=== PATIENT | male | born 1940 | race African-American/Black ===

== ENCOUNTER 2017-09-25 22:04 | Observation (INO) | payer OTHER ==
[2017-09-25 22:45] LABS: ADD MAN DIFF? NO
[2017-09-25] MEDS: LIDOCAINE/MYLANTA 40 ML BTL PO (22:56)
[2017-09-25] MEDS: FAMOTIDINE 20 MG INJ IV (22:56)
[2017-09-25] MEDS: SOD CHLORIDE 0.9% 500 ML IV (22:56)
[2017-09-25] MEDS: ONDANSETRON 4 MG INJ IV (22:57)
[2017-09-25] MEDS: morphine 4 MG/ML VIAL IV (22:57)
[2017-09-25 23:01] LABS: WHITE BLOOD COUNT 9.1 10^3/ul (4.8-10.8)
[2017-09-25 23:01] LABS: BASOPHILS % 0.3 % (0.0-2.0); HEMATOCRIT 34.3 % (42.0-52.0); HEMOGLOBIN 11.7 g/dl (14.0-18.0); IMMATURE GRANS #M 0.05 10^3/ul; IMMATURE GRANS % (M) 0.5 %; LYMPHOCYTES % 22.4 % (15.0-51.0); MEAN CORPUSCULAR HEMOGLOBIN 30.4 pg (29.0-33.0); MEAN CORPUSCULAR HGB CONC 34.1 g/dl (32.0-37.0); MEAN CORPUSCULAR VOLUME 89.1 fl (82.0-101.0); MONOCYTE # 0.7 10^3/ul (0.3-0.9); MONOCYTES % 7.8 % (0.0-11.0); NEUTROPHIL # 6.3 10^3/ul (1.6-7.5); PLATELET COUNT 131 10^3/UL (140-415); RED BLOOD COUNT 3.85 10^6/ul (4.70-6.10)
[2017-09-25 23:09] LABS: ALANINE AMINOTRANSFERASE 11 IU/L (13-69); ALBUMIN 3.3 g/dl (3.3-4.9); ALKALINE PHOSPHATASE 65 IU/L (42-121); ANION GAP 15 (8-16); ASPARTATE AMINO TRANSFERASE 22 IU/L (15-46); BILIRUBIN,INDIRECT 0.6 mg/dl (0-1.1); BILIRUBIN,TOTAL 0.6 mg/dl (0.2-1.3); BLOOD UREA NITROGEN 5 mg/dl (7-20); CALCIUM 8.1 mg/dl (8.4-10.2); CARBON DIOXIDE 20 mmol/L (21-31); CHLORIDE 89 mmol/L (97-110); CREATININE 0.76 mg/dl (0.61-1.24); GLUCOSE 81 mg/dl (70-220); LIPASE 63 U/L (23-300); POTASSIUM 3.2 mmol/L (3.5-5.1); SODIUM 121 mmol/L (135-144); TOTAL PROTEIN 6.3 g/dl (6.1-8.1)
[2017-09-25 23:55] LABS: ADD UMIC NO; UR ASCORBIC ACID NEGATIVE (NEGATIVE); UR BILIRUBIN (Dip) NEGATIVE (NEGATIVE); UR BLOOD (Dip) NEGATIVE (NEGATIVE); UR CLARITY CLEAR (CLEAR); UR COLOR STRAW (YELLOW); UR GLUCOSE (Dip) NEGATIVE (NEGATIVE); UR KETONES (Dip) NEGATIVE (NEGATIVE); UR LEUKOCYTE ESTERASE (Dip) NEGATIVE Leu/ul (NEGATIVE); UR NITRITE (Dip) NEGATIVE (NEGATIVE); UR SPECIFIC GRAVITY (Dip) 1.001 (1.003-1.030); UR TOTAL PROTEIN (Dip) NEGATIVE (NEGATIVE); UR UROBILINOGEN (Dip) NEGATIVE (NEGATIVE)
[2017-09-26] MEDS: POTASSIUM CHLORIDE (SR) 20 MEQ TAB PO (02:41)
[2017-09-26] MEDS: ONDANSETRON 4 MG INJ IV ×3 (03:48→20:41)
[2017-09-26] MEDS: PANTOPRAZOLE (EC) 40 MG TAB PO ×3 (06:46→20:39)
[2017-09-26 07:42] LABS: MAGNESIUM 0.6 mg/dl (1.7-2.5)
[2017-09-26] MEDS: ALLOPURINOL 100 MG TAB PO (08:25)
[2017-09-26] MEDS: MAGNESIUM OXIDE 400 MG TAB PO ×2 (08:25→20:38)
[2017-09-26] MEDS: MAGNESIUM SULFATE 4 GM/100 ML 100 ML IVPB (10:20)
[2017-09-26] MEDS: POTASSIUM CHLORIDE 40 MEQ in SOD CHLORIDE 0.9% 1,000 ML IV ×2 (12:21→20:30)
[2017-09-26] MEDS: ACETAMINOPHEN 325 MG TAB PO (12:44)
[2017-09-26 13:39] LABS: SODIUM 127 mmol/L (135-144)
[2017-09-26 18:46] LABS: ANION GAP 13 (8-16); BLOOD UREA NITROGEN 4 mg/dl (7-20); CALCIUM 8.4 mg/dl (8.4-10.2); CARBON DIOXIDE 23 mmol/L (21-31); CHLORIDE 98 mmol/L (97-110); CREATININE 0.78 mg/dl (0.61-1.24); GLUCOSE 70 mg/dl (70-220); MAGNESIUM 1.9 mg/dl (1.7-2.5); PHOSPHORUS 3.2 mg/dl (2.5-4.9); POTASSIUM 3.9 mmol/L (3.5-5.1); SODIUM 130 mmol/L (135-144)
[2017-09-26] MEDS: ALPRAZOLAM 0.5 MG TAB PO (20:43)
[2017-09-27] MEDS: ONDANSETRON 4 MG INJ IV (00:43)
[2017-09-27] MEDS: POTASSIUM CHLORIDE 40 MEQ in SOD CHLORIDE 0.9% 1,000 ML IV (03:08)
[2017-09-27] MEDS: morphine 4 MG/ML VIAL IV (04:22)
[2017-09-27 06:46] LABS: ADD MAN DIFF? NO
[2017-09-27 06:54] LABS: BASOPHILS % 0.6 % (0.0-2.0); HEMOGLOBIN 10.6 g/dl (14.0-18.0); IMMATURE GRANS #M 0.01 10^3/ul; IMMATURE GRANS % (M) 0.2 %; LYMPHOCYTES # 1.2 10^3/ul (0.8-2.9); LYMPHOCYTES % 23.4 % (15.0-51.0); MEAN CORPUSCULAR HEMOGLOBIN 29.7 pg (29.0-33.0); MEAN CORPUSCULAR HGB CONC 33.1 g/dl (32.0-37.0); MEAN CORPUSCULAR VOLUME 89.6 fl (82.0-101.0); MEAN PLATELET VOLUME 10.5 fl (7.4-10.4); MONOCYTE # 0.6 10^3/ul (0.3-0.9); MONOCYTES % 10.7 % (0.0-11.0); NEUTROPHIL # 3.4 10^3/ul (1.6-7.5); NEUTROPHILS % 65.1 % (39.0-77.0); PLATELET COUNT 132 10^3/UL (140-415); POSITIVE DIFF @See below; RED BLOOD COUNT 3.57 10^6/ul (4.70-6.10); RED CELL DISTRIBUTION WIDTH 14.1 % (11.5-14.5)
[2017-09-27 06:54] LABS: WHITE BLOOD COUNT 5.3 10^3/ul (4.8-10.8)
[2017-09-27 07:28] LABS: ANION GAP 10 (8-16); BLOOD UREA NITROGEN 3 mg/dl (7-20); CALCIUM 8.4 mg/dl (8.4-10.2); CARBON DIOXIDE 25 mmol/L (21-31); CHLORIDE 106 mmol/L (97-110); CREATININE 0.83 mg/dl (0.61-1.24); GLUCOSE 88 mg/dl (70-220); POTASSIUM 3.7 mmol/L (3.5-5.1); SODIUM 137 mmol/L (135-144)
[2017-09-27 07:31] LABS: PHOSPHORUS 3.1 mg/dl (2.5-4.9)
[2017-09-27 07:31] LABS: MAGNESIUM 1.7 mg/dl (1.7-2.5)
[2017-09-27] MEDS: MAGNESIUM OXIDE 400 MG TAB PO (08:21)
[2017-09-27] MEDS: ALLOPURINOL 100 MG TAB PO (08:21)
[2017-09-27] MEDS: PANTOPRAZOLE (EC) 40 MG TAB PO (08:21)
[2017-09-27] MEDS: MAGNESIUM SULFATE 2 GM/50 ML 50 ML IVPB (10:36)
[2017-09-27] MEDS: POTASSIUM CHLORIDE (SR) 20 MEQ TAB PO (10:37)
== END 2017-09-27 15:43 | disposition home or self-care (01) ==
LOC: E/R 22:04 → TEL 09-26 01:05
DX: E87.1 Hypo-osmolality and hyponatremia (principal); K20.9 Esophagitis, unspecified; K40.90 Unilateral inguinal hernia, without obstruction or gangrene, not specified as recurrent; J45.909 Unspecified asthma, uncomplicated; I10 Essential (primary) hypertension; I48.91 Unspecified atrial fibrillation; Z79.82 Long term (current) use of aspirin; Z88.6 Allergy status to analgesic agent; Z88.8 Allergy status to other drugs, medicaments and biological substances
CPT/HCPCS: 36415; 80048; 80053; 81003; 82533; 83690; 83735; 84100; 84295; 85025; 92526; 92610; 96374; 96375; 99285-25; G0378

== ENCOUNTER 2017-12-12 09:18 | Inpatient (IN) | payer OTHER ==
[2017-12-12 09:57] LABS: ADD MAN DIFF? NO
[2017-12-12 10:00] LABS: BASOPHILS % 0.2 % (0.0-2.0); HEMOGLOBIN 12.1 g/dl (14.0-18.0); LYMPHOCYTES # 1.4 10^3/ul (0.8-2.9); LYMPHOCYTES % 13.1 % (15.0-51.0); MEAN CORPUSCULAR HEMOGLOBIN 29.6 pg (29.0-33.0); MEAN CORPUSCULAR HGB CONC 34.6 g/dl (32.0-37.0); MEAN CORPUSCULAR VOLUME 85.6 fl (82.0-101.0); MEAN PLATELET VOLUME 10.1 fl (7.4-10.4); MONOCYTE # 0.5 10^3/ul (0.3-0.9); MONOCYTES % 4.8 % (0.0-11.0); NEUTROPHIL # 8.9 10^3/ul (1.6-7.5); NEUTROPHILS % 81.4 % (39.0-77.0); PLATELET COUNT 159 10^3/UL (140-415); RED BLOOD COUNT 4.09 10^6/ul (4.70-6.10); RED CELL DISTRIBUTION WIDTH 14.3 % (11.5-14.5)
[2017-12-12 10:00] LABS: WHITE BLOOD COUNT 10.9 10^3/ul (4.8-10.8)
[2017-12-12 10:19] LABS: INR 1.02; PARTIAL THROMBOPLASTIN TIME 27.1 Sec (23.0-35.0); PROTIME 13.5 Sec (11.9-14.9); PT RATIO 1.1
[2017-12-12] MEDS: SOD CHLORIDE 0.9% 1,000 ML IV ×2 (10:30→18:49)
[2017-12-12] MEDS: ONDANSETRON 4 MG INJ IV (10:30)
[2017-12-12] MEDS: FAMOTIDINE 20 MG INJ IV (10:30)
[2017-12-12 10:32] LABS: ALANINE AMINOTRANSFERASE 16 IU/L (13-69); ALBUMIN 3.6 g/dl (3.3-4.9); ALBUMIN/GLOBULIN RATIO 1.12; ALKALINE PHOSPHATASE 55 IU/L (42-121); AMYLASE 124 U/L (11-123); ANION GAP 14 (5-13); ASPARTATE AMINO TRANSFERASE 25 IU/L (15-46); BILIRUBIN,INDIRECT 0.7 mg/dl (0-1.1); BILIRUBIN,TOTAL 0.7 mg/dl (0.2-1.3); BLOOD UREA NITROGEN 7 mg/dl (7-20); CALCIUM 8.3 mg/dl (8.4-10.2); CARBON DIOXIDE 20 mmol/L (21-31); CHLORIDE 80 mmol/L (97-110); CREATININE 0.71 mg/dl (0.61-1.24); GLUCOSE 82 mg/dl (70-220); LIPASE 80 U/L (23-300); POTASSIUM 3.7 mmol/L (3.5-5.1); TOTAL PROTEIN 6.8 g/dl (6.1-8.1)
[2017-12-12 10:41] LABS: SODIUM 114 mmol/L (135-144); TROPONIN-I 0.018 ng/ml (0.000-0.120)
[2017-12-12] MEDS ORDERED: ONDANSETRON 4 MG TAB PO (14:30)
[2017-12-12] MEDS ORDERED: ONDANSETRON 4 MG INJ IV (14:30)
[2017-12-12] MEDS ORDERED: NACL 0.9% 3 ML SYG IV (14:30)
[2017-12-12] MEDS ORDERED: ACETAMINOPHEN 325 MG TAB PO (14:30)
[2017-12-12] MEDS: PANTOPRAZOLE 40 MG INJ IV (14:47)
[2017-12-12] MEDS: hydrALAzine 20 MG INJ IV (14:48)
[2017-12-12] MEDS: METOCLOPRAMIDE 10 MG INJ IV ×2 (14:48→21:15)
[2017-12-12] MEDS: SODIUM CHLORIDE 1 GM TAB PO ×2 (15:22→21:15)
[2017-12-12] MEDS: LISINOPRIL 5 MG TAB PO (15:22)
[2017-12-12] MEDS: ARIPIPRAZOLE 2 MG TAB PO (15:22)
[2017-12-12 16:36] LABS: ANION GAP 12 (5-13); BLOOD UREA NITROGEN 6 mg/dl (7-20); CALCIUM 8.1 mg/dl (8.4-10.2); CARBON DIOXIDE 19 mmol/L (21-31); CHLORIDE 83 mmol/L (97-110); CREATININE 0.66 mg/dl (0.61-1.24); GLUCOSE 80 mg/dl (70-220); POTASSIUM 3.4 mmol/L (3.5-5.1)
[2017-12-12 16:46] LABS: SODIUM 114 mmol/L (135-144)
[2017-12-12 16:46] LABS: MAGNESIUM 0.5 mg/dl (1.7-2.5)
[2017-12-12] MEDS: ALBUTEROL HFA 8 GM INHALER INH ×3 (17:00→23:57)
[2017-12-12] MEDS: ALPRAZOLAM 0.5 MG TAB PO (19:29)
[2017-12-12] MEDS: POTASSIUM CHLORIDE 100 ML IVPB (20:42)
[2017-12-12] MEDS: MAGNESIUM SULFATE 4 GM/100 ML 100 ML IVPB (20:46)
[2017-12-12] MEDS: TAMSULOSIN (SR) 0.4 MG CAP PO (21:15)
[2017-12-12] MEDS: MAGNESIUM OXIDE 400 MG TAB PO (21:15)
[2017-12-13] MEDS: ALBUTEROL HFA 8 GM INHALER INH ×6 (02:30→21:23)
[2017-12-13] MEDS: ALPRAZOLAM 0.5 MG TAB PO ×2 (03:17→17:12)
[2017-12-13] MEDS: SOD CHLORIDE 0.9% 1,000 ML IV ×2 (04:30→14:04)
[2017-12-13 09:28] LABS: MAGNESIUM 1.4 mg/dl (1.7-2.5)
[2017-12-13 09:28] LABS: ANION GAP 10 (5-13); BLOOD UREA NITROGEN 6 mg/dl (7-20); CALCIUM 8.1 mg/dl (8.4-10.2); CARBON DIOXIDE 20 mmol/L (21-31); CHLORIDE 92 mmol/L (97-110); CREATININE 0.61 mg/dl (0.61-1.24); GLUCOSE 60 mg/dl (70-220); POTASSIUM 3.4 mmol/L (3.5-5.1); SODIUM 122 mmol/L (135-144)
[2017-12-13] MEDS: ARIPIPRAZOLE 2 MG TAB PO (09:46)
[2017-12-13] MEDS: PANTOPRAZOLE 40 MG INJ IV (09:46)
[2017-12-13] MEDS: MAGNESIUM OXIDE 400 MG TAB PO ×2 (09:47→21:23)
[2017-12-13] MEDS: FOLIC ACID 1 MG TAB PO (09:47)
[2017-12-13] MEDS: ALLOPURINOL 100 MG TAB PO (09:47)
[2017-12-13] MEDS: LISINOPRIL 5 MG TAB PO (09:47)
[2017-12-13] MEDS: VITAMIN B COMPLEX/VIT C CAP PO (09:47)
[2017-12-13] MEDS: METOCLOPRAMIDE 10 MG INJ IV ×3 (09:48→21:23)
[2017-12-13] MEDS: ENOXAPARIN 40 MG/0.4 ML SYG SC (10:02)
[2017-12-13] MEDS: SODIUM CHLORIDE 1 GM TAB PO ×2 (10:19→23:00)
[2017-12-13] MEDS: MAGNESIUM SULFATE 2 GM/50 ML 50 ML IVPB (10:35)
[2017-12-13] MEDS: TAMSULOSIN (SR) 0.4 MG CAP PO (21:23)
[2017-12-14] MEDS: SOD CHLORIDE 0.9% 1,000 ML IV ×2 (01:00→10:56)
[2017-12-14] MEDS: ALBUTEROL HFA 8 GM INHALER INH ×4 (01:37→12:38)
[2017-12-14 06:13] LABS: ADD MAN DIFF? NO
[2017-12-14 06:20] LABS: BASOPHILS % 0.1 % (0.0-2.0); HEMOGLOBIN 11.9 g/dl (14.0-18.0); LYMPHOCYTES # 0.8 10^3/ul (0.8-2.9); LYMPHOCYTES % 8.3 % (15.0-51.0); MEAN CORPUSCULAR HEMOGLOBIN 29.4 pg (29.0-33.0); MEAN PLATELET VOLUME 9.7 fl (7.4-10.4); MONOCYTE # 0.6 10^3/ul (0.3-0.9); MONOCYTES % 6.4 % (0.0-11.0); NEUTROPHIL # 7.8 10^3/ul (1.6-7.5); NEUTROPHILS % 84.8 % (39.0-77.0); PLATELET COUNT 133 10^3/UL (140-415); POSITIVE DIFF @See below; RED BLOOD COUNT 4.05 10^6/ul (4.70-6.10); RED CELL DISTRIBUTION WIDTH 14.5 % (11.5-14.5)
[2017-12-14 06:20] LABS: WHITE BLOOD COUNT 9.2 10^3/ul (4.8-10.8)
[2017-12-14 06:47] LABS: ANION GAP 10 (5-13); BLOOD UREA NITROGEN 4 mg/dl (7-20); CALCIUM 8.6 mg/dl (8.4-10.2); CARBON DIOXIDE 22 mmol/L (21-31); CHLORIDE 95 mmol/L (97-110); CREATININE 0.57 mg/dl (0.61-1.24); GLUCOSE 71 mg/dl (70-220); POTASSIUM 3.3 mmol/L (3.5-5.1); SODIUM 127 mmol/L (135-144)
[2017-12-14 06:49] LABS: MAGNESIUM 1.6 mg/dl (1.7-2.5)
[2017-12-14] MEDS: VITAMIN B COMPLEX/VIT C CAP PO (08:45)
[2017-12-14] MEDS: POTASSIUM CHLORIDE (SR) 20 MEQ TAB PO ×2 (08:45→10:56)
[2017-12-14] MEDS: MAGNESIUM OXIDE 400 MG TAB PO (08:46)
[2017-12-14] MEDS: LISINOPRIL 5 MG TAB PO (08:46)
[2017-12-14] MEDS: ARIPIPRAZOLE 2 MG TAB PO (08:46)
[2017-12-14] MEDS: PANTOPRAZOLE 40 MG INJ IV (08:46)
[2017-12-14] MEDS: FOLIC ACID 1 MG TAB PO (08:46)
[2017-12-14] MEDS: ALLOPURINOL 100 MG TAB PO (08:46)
[2017-12-14] MEDS: SODIUM CHLORIDE 1 GM TAB PO (08:46)
[2017-12-14] MEDS: METOCLOPRAMIDE 10 MG INJ IV ×2 (08:46→12:38)
[2017-12-14] MEDS: ENOXAPARIN 40 MG/0.4 ML SYG SC (08:47)
[2017-12-14] MEDS: MAGNESIUM SULFATE 3 GM in DEXTROSE 5% 100 ML IVPB (10:56)
== END 2017-12-14 18:25 | disposition home health service (06) | DRG 641 ==
LOC: E/R 09:18 → TEL 13:10
DX: E87.1 Hypo-osmolality and hyponatremia (principal); K29.70 Gastritis, unspecified, without bleeding; R13.10 Dysphagia, unspecified; I48.91 Unspecified atrial fibrillation; I10 Essential (primary) hypertension; F42.8 Other obsessive-compulsive disorder; E87.6 Hypokalemia; E83.42 Hypomagnesemia; R14.2 Eructation
CPT/HCPCS: 71045; 74176; 80048; 80053; 82150; 83690; 83735; 84484; 85025; 85610; 85730; 92610; 93005; 96374; 96375; 97161; 97166; 99285-25

== ENCOUNTER 2018-02-06 01:00 | Emergency (ER) | payer OTHER ==
[2018-02-06 02:29] LABS: ADD MAN DIFF? NO
[2018-02-06 02:31] LABS: WHITE BLOOD COUNT 7.7 10^3/ul (4.8-10.8)
[2018-02-06 02:31] LABS: BASOPHILS % 0.4 % (0.0-2.0); EOSINOPHILS # 0.1 10^3/ul (0.0-0.5); EOSINOPHILS % 0.6 % (0.0-7.0); HEMATOCRIT 37.1 % (42.0-52.0); LYMPHOCYTES # 1.9 10^3/ul (0.8-2.9); LYMPHOCYTES % 24.9 % (15.0-51.0); MEAN CORPUSCULAR HEMOGLOBIN 29.5 pg (29.0-33.0); MEAN CORPUSCULAR HGB CONC 32.3 g/dl (32.0-37.0); MEAN CORPUSCULAR VOLUME 91.2 fl (82.0-101.0); MEAN PLATELET VOLUME 9.4 fl (7.4-10.4); MONOCYTE # 0.7 10^3/ul (0.3-0.9); MONOCYTES % 9.1 % (0.0-11.0); NEUTROPHILS % 64.7 % (39.0-77.0); PLATELET COUNT 206 10^3/UL (140-415); RED BLOOD COUNT 4.07 10^6/ul (4.70-6.10); RED CELL DISTRIBUTION WIDTH 16.4 % (11.5-14.5)
[2018-02-06 02:58] LABS: ALANINE AMINOTRANSFERASE 10 IU/L (13-69); ALBUMIN 3.3 g/dl (3.3-4.9); ALKALINE PHOSPHATASE 67 IU/L (42-121); ANION GAP 8 (5-13); ASPARTATE AMINO TRANSFERASE 19 IU/L (15-46); BILIRUBIN,INDIRECT 0.2 mg/dl (0-1.1); BILIRUBIN,TOTAL 0.2 mg/dl (0.2-1.3); BLOOD UREA NITROGEN 10 mg/dl (7-20); CARBON DIOXIDE 32 mmol/L (21-31); CHLORIDE 99 mmol/L (97-110); CREATININE 0.95 mg/dl (0.61-1.24); GLUCOSE 77 mg/dl (70-220); LIPASE 67 U/L (23-300); POTASSIUM 5.2 mmol/L (3.5-5.1); SODIUM 139 mmol/L (135-144); TOTAL PROTEIN 6.3 g/dl (6.1-8.1)
[2018-02-06 03:09] LABS: TROPONIN-I < 0.012 ng/ml (0.000-0.120)
[2018-02-06] MEDS: ONDANSETRON 4 MG INJ IV (05:00)
== END 2018-02-06 06:05 | disposition home or self-care (01) ==
LOC: E/R 01:00
DX: R11.10 Vomiting, unspecified (principal); I10 Essential (primary) hypertension; F17.210 Nicotine dependence, cigarettes, uncomplicated
CPT/HCPCS: 36415; 71045; 80053; 83690; 84484; 85025; 93005; 96374; 99285-25

== ENCOUNTER 2018-03-10 03:17 | Emergency (ER) | payer OTHER ==
[2018-03-10] MEDS ORDERED: SOD CHLORIDE 0.9% 1,000 ML IV (03:41)
[2018-03-10 04:28] LABS: ADD MAN DIFF? NO
[2018-03-10 04:29] LABS: BASOPHILS % 0.3 % (0.0-2.0); EOSINOPHILS % 0.1 % (0.0-7.0); HEMATOCRIT 31.6 % (42.0-52.0); HEMOGLOBIN 10.5 g/dl (14.0-18.0); LYMPHOCYTES # 1.3 10^3/ul (0.8-2.9); LYMPHOCYTES % 18.5 % (15.0-51.0); MEAN CORPUSCULAR HEMOGLOBIN 29.5 pg (29.0-33.0); MEAN CORPUSCULAR HGB CONC 33.2 g/dl (32.0-37.0); MEAN CORPUSCULAR VOLUME 88.8 fl (82.0-101.0); MEAN PLATELET VOLUME 9.2 fl (7.4-10.4); MONOCYTE # 0.9 10^3/ul (0.3-0.9); MONOCYTES % 12.3 % (0.0-11.0); NEUTROPHIL # 4.8 10^3/ul (1.6-7.5); NEUTROPHILS % 68.5 % (39.0-77.0); PLATELET COUNT 177 10^3/UL (140-415); RED BLOOD COUNT 3.56 10^6/ul (4.70-6.10)
[2018-03-10] MEDS: FAMOTIDINE 20 MG INJ IV (04:30)
[2018-03-10] MEDS: ONDANSETRON 4 MG INJ IV (04:30)
[2018-03-10 04:51] LABS: ALANINE AMINOTRANSFERASE 15 IU/L (13-69); ALBUMIN 2.9 g/dl (3.3-4.9); ALBUMIN/GLOBULIN RATIO 1.03; ALKALINE PHOSPHATASE 63 IU/L (42-121); ANION GAP 8 (5-13); ASPARTATE AMINO TRANSFERASE 20 IU/L (15-46); BILIRUBIN,INDIRECT 0.1 mg/dl (0-1.1); BILIRUBIN,TOTAL 0.1 mg/dl (0.2-1.3); BLOOD UREA NITROGEN 5 mg/dl (7-20); CALCIUM 8.3 mg/dl (8.4-10.2); CARBON DIOXIDE 31 mmol/L (21-31); CHLORIDE 89 mmol/L (97-110); CREATININE 1.01 mg/dl (0.61-1.24); GLUCOSE 79 mg/dl (70-220); LIPASE 55 U/L (23-300); POTASSIUM 4.8 mmol/L (3.5-5.1); SODIUM 128 mmol/L (135-144); TOTAL PROTEIN 5.7 g/dl (6.1-8.1)
[2018-03-10 05:16] LABS: ADD UMIC NO; UR ASCORBIC ACID NEGATIVE (NEGATIVE); UR BILIRUBIN (Dip) NEGATIVE (NEGATIVE); UR BLOOD (Dip) NEGATIVE (NEGATIVE); UR CLARITY CLEAR (CLEAR); UR COLOR STRAW (YELLOW); UR GLUCOSE (Dip) NEGATIVE (NEGATIVE); UR KETONES (Dip) NEGATIVE (NEGATIVE); UR LEUKOCYTE ESTERASE (Dip) NEGATIVE Leu/ul (NEGATIVE); UR NITRITE (Dip) NEGATIVE (NEGATIVE); UR SPECIFIC GRAVITY (Dip) 1.004 (1.003-1.030); UR TOTAL PROTEIN (Dip) NEGATIVE (NEGATIVE); UR UROBILINOGEN (Dip) NEGATIVE (NEGATIVE)
== END 2018-03-10 08:15 | disposition home or self-care (01) ==
LOC: E/R 03:17
DX: R11.10 Vomiting, unspecified (principal); F45.8 Other somatoform disorders; E87.1 Hypo-osmolality and hyponatremia; I10 Essential (primary) hypertension; Z87.891 Personal history of nicotine dependence
CPT/HCPCS: 36415; 80053; 81003; 83690; 85025; 96374; 96375; 99284-25

== ENCOUNTER 2018-03-29 23:46 | Emergency (ER) | payer SELFPAY, OTHER | END 2018-03-30 00:19 | disposition left against medical advice (07) | LOC: E/R 23:46 | DX: Z53.21 Procedure and treatment not carried out due to patient leaving prior to being seen by health care provider (principal) ==

== ENCOUNTER 2018-04-16 16:21 | Inpatient (IN) | payer OTHER ==
[2018-04-16 17:03] LABS: HEMATOCRIT 35.9 % (42.0-52.0); MEAN CORPUSCULAR HEMOGLOBIN 29.3 pg (29.0-33.0); MEAN CORPUSCULAR HGB CONC 33.4 g/dl (32.0-37.0); MEAN CORPUSCULAR VOLUME 87.6 fl (82.0-101.0); PLATELET COUNT 174 10^3/UL (140-415); POSITIVE DIFF @See below; RED CELL DISTRIBUTION WIDTH 13.8 % (11.5-14.5)
[2018-04-16 17:03] LABS: WHITE BLOOD COUNT 12.3 10^3/ul (4.8-10.8)
[2018-04-16 17:11] LABS: ADD MAN DIFF? YES; MEAN PLATELET VOLUME 11.3 fl (7.4-10.4)
[2018-04-16] MEDS: ONDANSETRON 4 MG INJ IV (17:35)
[2018-04-16] MEDS: SOD CHLORIDE 0.9% 1,000 ML IV ×2 (17:35→22:15)
[2018-04-16 17:48] LABS: ALANINE AMINOTRANSFERASE 18 IU/L (13-69); ALBUMIN 3.2 g/dl (3.3-4.9); ALBUMIN/GLOBULIN RATIO 1.06; ALKALINE PHOSPHATASE 76 IU/L (42-121); ANION GAP 9 (5-13); ASPARTATE AMINO TRANSFERASE 24 IU/L (15-46); BILIRUBIN,INDIRECT 0.7 mg/dl (0-1.1); BILIRUBIN,TOTAL 0.7 mg/dl (0.2-1.3); BLOOD UREA NITROGEN 7 mg/dl (7-20); CALCIUM 8.5 mg/dl (8.4-10.2); CARBON DIOXIDE 27 mmol/L (21-31); CHLORIDE 81 mmol/L (97-110); CREATININE 0.73 mg/dl (0.61-1.24); GLUCOSE 78 mg/dl (70-220); LIPASE 38 U/L (23-300); POTASSIUM 5.1 mmol/L (3.5-5.1); TOTAL PROTEIN 6.2 g/dl (6.1-8.1)
[2018-04-16 18:00] LABS: TROPONIN-I 0.028 ng/ml (0.000-0.120)
[2018-04-16 18:01] LABS: SODIUM 117 mmol/L (135-144)
[2018-04-16 19:25] LABS: ANISOCYTOSIS 1+ (0-0); BAND NEUTROPHILS #M 0.3 10^3/ul (0.0-0.6); BAND NEUTROPHILS % (M) 3 % (0-4); BURR CELLS 1+ (0-0); GIANT THROMBO% (M) 3 % (0-0); LYMPHOCYTES #M 1.4 10^3/ul (0.8-2.9); LYMPHOCYTES % (M) 12 % (15-51); MICROCYTOSIS 1+ (0-0); MONOCYTE #M 0.6 10^3/ul (0.3-0.9); MONOCYTES % (M) 5 % (0-11); OVALOCYTES 2+ (0-0); PLATELET ESTIMATE NORMAL; POIKILOCYTOSIS 2+ (0-0); REACTIVE LYMPHOCYTES #M 0.1 10^3/ul (0.0-0.0); REACTIVE LYMPHOCYTES% (M) 1 % (0-0); SEG NEUT #M 9.8 10^3/ul (1.6-7.5); SEGMENTED NEUTROPHILS (M) % 79 % (39-77); SMUDGE%M 19 % (0-0)
[2018-04-16] MEDS: LORAZEPAM 2 MG INJ IV (19:47)
[2018-04-16 21:05] LABS: ANION GAP 6 (5-13); BLOOD UREA NITROGEN 7 mg/dl (7-20); CALCIUM 8.3 mg/dl (8.4-10.2); CARBON DIOXIDE 25 mmol/L (21-31); CHLORIDE 86 mmol/L (97-110); CREATININE 0.66 mg/dl (0.61-1.24); GLUCOSE 72 mg/dl (70-220); POTASSIUM 4.6 mmol/L (3.5-5.1)
[2018-04-16 21:12] LABS: ADD UMIC NO; UR ASCORBIC ACID NEGATIVE (NEGATIVE); UR BILIRUBIN (Dip) NEGATIVE (NEGATIVE); UR BLOOD (Dip) NEGATIVE (NEGATIVE); UR CLARITY CLEAR (CLEAR); UR COLOR STRAW (YELLOW); UR GLUCOSE (Dip) NEGATIVE (NEGATIVE); UR KETONES (Dip) NEGATIVE (NEGATIVE); UR LEUKOCYTE ESTERASE (Dip) NEGATIVE Leu/ul (NEGATIVE); UR NITRITE (Dip) NEGATIVE (NEGATIVE); UR SPECIFIC GRAVITY (Dip) 1.003 (1.003-1.030); UR TOTAL PROTEIN (Dip) NEGATIVE (NEGATIVE); UR UROBILINOGEN (Dip) NEGATIVE (NEGATIVE)
[2018-04-16 21:16] LABS: SODIUM 117 mmol/L (135-144)
[2018-04-16 21:35] LABS: OSMOLALITY 238 mOsm/kg (280-295)
[2018-04-16 21:36] LABS: OSMOLALITY,URINE 166 mOsm/kg (250-1200)
[2018-04-16 22:00] LABS: SODIUM,URINE RANDOM 35 mmol/L (30-90)
[2018-04-16] MEDS ORDERED: SOD CHLORIDE 0.9% 1,000 ML IV (22:00)
[2018-04-16] MEDS ORDERED: ACETAMINOPHEN 325 MG TAB PO (22:30)
[2018-04-16] MEDS ORDERED: ONDANSETRON 4 MG INJ IV (22:30)
[2018-04-17] MEDS: ZOLPIDEM 5 MG TAB PO (00:35)
[2018-04-17] MEDS: LORAZEPAM 2 MG INJ IV ×2 (01:08→06:07)
[2018-04-17] MEDS ORDERED: PENDING SANTYL ORDER FOR WOUND CARE XX (04:00)
[2018-04-17] MEDS: SOD CHLORIDE 0.9% 1,000 ML IV ×2 (05:38→15:05)
[2018-04-17 07:01] LABS: ADD MAN DIFF? NO
[2018-04-17 07:04] LABS: BASOPHILS % 0.2 % (0.0-2.0); EOSINOPHILS % 0.3 % (0.0-7.0); HEMATOCRIT 32.8 % (42.0-52.0); HEMOGLOBIN 11.2 g/dl (14.0-18.0); LYMPHOCYTES # 1.5 10^3/ul (0.8-2.9); LYMPHOCYTES % 16.8 % (15.0-51.0); MEAN CORPUSCULAR HEMOGLOBIN 28.8 pg (29.0-33.0); MEAN CORPUSCULAR HGB CONC 34.1 g/dl (32.0-37.0); MEAN CORPUSCULAR VOLUME 84.3 fl (82.0-101.0); MEAN PLATELET VOLUME 10.4 fl (7.4-10.4); MONOCYTE # 0.5 10^3/ul (0.3-0.9); MONOCYTES % 5.2 % (0.0-11.0); NEUTROPHIL # 6.6 10^3/ul (1.6-7.5); NEUTROPHILS % 77.2 % (39.0-77.0); PLATELET COUNT 154 10^3/UL (140-415); RED BLOOD COUNT 3.89 10^6/ul (4.70-6.10); RED CELL DISTRIBUTION WIDTH 13.8 % (11.5-14.5)
[2018-04-17 07:04] LABS: WHITE BLOOD COUNT 8.6 10^3/ul (4.8-10.8)
[2018-04-17 07:28] LABS: BLOOD UREA NITROGEN 7 mg/dl (7-20); CALCIUM 8.6 mg/dl (8.4-10.2); CARBON DIOXIDE 24 mmol/L (21-31); CREATININE 0.67 mg/dl (0.61-1.24); GLUCOSE 72 mg/dl (70-220); POTASSIUM 4.1 mmol/L (3.5-5.1); SODIUM 123 mmol/L (135-144)
[2018-04-17 07:40] LABS: ANION GAP 8 (5-13); CHLORIDE 91 mmol/L (97-110)
[2018-04-17] MEDS ORDERED: SODIUM CHLORIDE 1 GM TAB PO (10:00)
[2018-04-17] MEDS ORDERED: ALPRAZOLAM 0.5 MG TAB PO (10:00)
[2018-04-17] MEDS: SODIUM CHLORIDE 1 GM TAB PO ×3 (10:41→20:09)
[2018-04-17] MEDS: ALLOPURINOL 100 MG TAB PO (10:41)
[2018-04-17] MEDS: LISINOPRIL 5 MG TAB PO (10:42)
[2018-04-17] MEDS: PANTOPRAZOLE (EC) 40 MG TAB PO ×2 (10:42→17:17)
[2018-04-17] MEDS: ARIPIPRAZOLE 2 MG TAB PO (10:42)
[2018-04-17] MEDS: HYDROCODONE/APAP (5/325) TAB PO (16:45)
[2018-04-17] MEDS ORDERED: morphine 4 MG/ML VIAL IV ×2 (19:00)
[2018-04-17] MEDS: KETOROLAC 30 MG INJ IV (19:30)
[2018-04-17] MEDS: SERTRALINE 50 MG TAB PO (20:09)
[2018-04-17] MEDS: TAMSULOSIN (SR) 0.4 MG CAP PO (20:09)
[2018-04-17] MEDS: DONEPEZIL 5 MG TAB PO (20:09)
[2018-04-17] MEDS: morphine 2 MG INJ IV (22:27)
[2018-04-18] MEDS: LORAZEPAM 2 MG INJ IV (01:23)
[2018-04-18] MEDS: HYDROCODONE/HOMATROPINE 5ML CUP PO (03:21)
[2018-04-18] MEDS: PANTOPRAZOLE (EC) 40 MG TAB PO ×2 (05:40→18:20)
[2018-04-18] MEDS: SOD CHLORIDE 0.9% 1,000 ML IV ×2 (05:41→17:45)
[2018-04-18] MEDS: morphine 2 MG INJ IV ×2 (05:55→20:15)
[2018-04-18 09:07] LABS: ANION GAP 8 (5-13); BLOOD UREA NITROGEN 8 mg/dl (7-20); CALCIUM 8.3 mg/dl (8.4-10.2); CARBON DIOXIDE 22 mmol/L (21-31); CHLORIDE 99 mmol/L (97-110); CREATININE 0.81 mg/dl (0.61-1.24); GLUCOSE 74 mg/dl (70-220); POTASSIUM 3.7 mmol/L (3.5-5.1); SODIUM 129 mmol/L (135-144)
[2018-04-18] MEDS: SODIUM CHLORIDE 1 GM TAB PO ×3 (09:57→20:12)
[2018-04-18] MEDS: ALLOPURINOL 100 MG TAB PO (09:58)
[2018-04-18] MEDS: ARIPIPRAZOLE 2 MG TAB PO (09:58)
[2018-04-18] MEDS: LISINOPRIL 5 MG TAB PO (09:58)
[2018-04-18] MEDS: HYDROCODONE/APAP (5/325) TAB PO ×2 (10:23→18:20)
[2018-04-18] MEDS: ONDANSETRON (ODT) 4 MG TAB ODT ×2 (15:58→20:12)
[2018-04-18] MEDS: SERTRALINE 50 MG TAB PO (20:12)
[2018-04-18] MEDS: DONEPEZIL 5 MG TAB PO (20:12)
[2018-04-19] MEDS ORDERED: INFLUENZA VIRUS VACCINE 0.5 ML (DISPENSING) IM* (10:00)
== END 2018-04-18 20:36 | DRG 641 ==
LOC: E/R 16:21 → TEL 04-17 18:53
PROVIDERS: Internal Medicine
DX: E87.1 Hypo-osmolality and hyponatremia (principal); E44.0 Moderate protein-calorie malnutrition; R63.1 Polydipsia; I10 Essential (primary) hypertension; I48.2 Chronic atrial fibrillation; F17.200 Nicotine dependence, unspecified, uncomplicated; G30.9 Alzheimer's disease, unspecified; F02.80 Dementia in other diseases classified elsewhere, unspecified severity, without behavioral disturbance, psychotic disturbance, mood disturbance, and anxiety; J44.9 Chronic obstructive pulmonary disease, unspecified; N40.0 Benign prostatic hyperplasia without lower urinary tract symptoms; Z68.26 Body mass index [BMI] 26.0-26.9, adult
CPT/HCPCS: 36415; 71100; 74176; 80048; 80053; 81003; 83690; 83930; 83935; 84300; 84484; 85025; 92610; 93005; 96374; 96375; 97162; 99291-25

== ENCOUNTER 2018-07-25 18:52 | Inpatient (IN) | payer OTHER ==
[2018-07-25] MEDS: ONDANSETRON 4 MG INJ IV ×2 (20:00→20:27)
[2018-07-25 20:44] LABS: URINE PH (Dip) POC 7.5 (5.0-8.5)
[2018-07-25 20:44] LABS: URINE BLOOD (Dip) POC 3+ (NEGATIVE); URINE GLUCOSE (Dip) POC Negative (NEGATIVE); URINE KETONES (Dip) POC Negative (NEGATIVE); URINE LEUKOCYTE EST (Dip) POC Negative (NEGATIVE); URINE NITRITE (Dip) POC Negative (NEGATIVE); URINE TOTAL PROTEIN POC 1+ (NEGATIVE)
[2018-07-25 20:49] LABS: ADD MAN DIFF? NO
[2018-07-25 20:50] LABS: WHITE BLOOD COUNT 9.7 10^3/ul (4.8-10.8)
[2018-07-25 20:50] LABS: BASOPHILS % 0.3 % (0.0-2.0); EOSINOPHILS % 0.1 % (0.0-7.0); HEMATOCRIT 36.2 % (42.0-52.0); HEMOGLOBIN 11.9 g/dl (14.0-18.0); LYMPHOCYTES # 1.7 10^3/ul (0.8-2.9); LYMPHOCYTES % 17.2 % (15.0-51.0); MEAN CORPUSCULAR HGB CONC 32.9 g/dl (32.0-37.0); MEAN CORPUSCULAR VOLUME 88.3 fl (82.0-101.0); MEAN PLATELET VOLUME 10.8 fl (7.4-10.4); MONOCYTE # 0.6 10^3/ul (0.3-0.9); MONOCYTES % 6.4 % (0.0-11.0); NEUTROPHIL # 7.3 10^3/ul (1.6-7.5); NEUTROPHILS % 75.6 % (39.0-77.0); PLATELET COUNT 142 10^3/UL (140-415); RED CELL DISTRIBUTION WIDTH 14.2 % (11.5-14.5)
[2018-07-25 21:01] LABS: ALBUMIN 3.6 g/dl (3.3-4.9); ALBUMIN/GLOBULIN RATIO 1.02; ALKALINE PHOSPHATASE 80 IU/L (42-121); ANION GAP 13 (5-13); ASPARTATE AMINO TRANSFERASE 48 IU/L (15-46); BILIRUBIN,INDIRECT 0.8 mg/dl (0-1.1); BILIRUBIN,TOTAL 0.8 mg/dl (0.2-1.3); BLOOD UREA NITROGEN 7 mg/dl (7-20); CALCIUM 8.3 mg/dl (8.4-10.2); CARBON DIOXIDE 23 mmol/L (21-31); CHLORIDE 83 mmol/L (97-110); CREATININE 0.72 mg/dl (0.61-1.24); GLUCOSE 83 mg/dl (70-220); LIPASE 90 U/L (23-300); POTASSIUM 4.9 mmol/L (3.5-5.1); TOTAL PROTEIN 7.1 g/dl (6.1-8.1)
[2018-07-25 21:12] LABS: TROPONIN-I < 0.012 ng/ml (0.000-0.120)
[2018-07-25 21:18] LABS: ALANINE AMINOTRANSFERASE < 6 IU/L (13-69)
[2018-07-25 21:22] LABS: SODIUM 119 mmol/L (135-144)
[2018-07-25] MEDS: LORAZEPAM 2 MG INJ IV (23:14)
[2018-07-25] MEDS: SOD CHLORIDE 0.9% 500 ML IV (23:14)
[2018-07-26] MEDS: HALOPERIDOL 5 MG INJ IV ×2 (02:30→19:28)
[2018-07-26 06:27] LABS: ADD MAN DIFF? NO
[2018-07-26 06:36] LABS: BASOPHILS % 0.1 % (0.0-2.0); HEMATOCRIT 35.9 % (42.0-52.0); HEMOGLOBIN 11.8 g/dl (14.0-18.0); LYMPHOCYTES # 1.2 10^3/ul (0.8-2.9); LYMPHOCYTES % 14.7 % (15.0-51.0); MEAN CORPUSCULAR HEMOGLOBIN 28.3 pg (29.0-33.0); MEAN CORPUSCULAR HGB CONC 32.9 g/dl (32.0-37.0); MEAN CORPUSCULAR VOLUME 86.1 fl (82.0-101.0); MEAN PLATELET VOLUME 9.4 fl (7.4-10.4); MONOCYTE # 0.7 10^3/ul (0.3-0.9); MONOCYTES % 8.2 % (0.0-11.0); NEUTROPHIL # 6.2 10^3/ul (1.6-7.5); NEUTROPHILS % 76.6 % (39.0-77.0); PLATELET COUNT 135 10^3/UL (140-415); POSITIVE DIFF @See below; RED BLOOD COUNT 4.17 10^6/ul (4.70-6.10); RED CELL DISTRIBUTION WIDTH 14.1 % (11.5-14.5)
[2018-07-26 07:05] LABS: ALANINE AMINOTRANSFERASE 10 IU/L (13-69); ALBUMIN 3.2 g/dl (3.3-4.9); ALBUMIN/GLOBULIN RATIO 1.06; ALKALINE PHOSPHATASE 69 IU/L (42-121); ANION GAP 8 (5-13); ASPARTATE AMINO TRANSFERASE 23 IU/L (15-46); BLOOD UREA NITROGEN 7 mg/dl (7-20); CALCIUM 8.4 mg/dl (8.4-10.2); CARBON DIOXIDE 26 mmol/L (21-31); CHLORIDE 90 mmol/L (97-110); CREATININE 0.76 mg/dl (0.61-1.24); GLUCOSE 64 mg/dl (70-220); POTASSIUM 4.9 mmol/L (3.5-5.1); SODIUM 124 mmol/L (135-144); TOTAL PROTEIN 6.2 g/dl (6.1-8.1)
[2018-07-26] MEDS: SODIUM CHLORIDE 1 GM TAB PO ×3 (08:24→21:23)
[2018-07-26 09:03] LABS: SODIUM,URINE RANDOM 34 mmol/L (30-90)
[2018-07-26 10:48] LABS: OSMOLALITY,URINE 122 mOsm/kg (250-1200)
[2018-07-26 15:38] LABS: PHOSPHORUS 3.7 mg/dl (2.5-4.9)
[2018-07-26 15:48] LABS: MAGNESIUM 0.7 mg/dl (1.7-2.5)
[2018-07-26] MEDS: MAG SULFATE 2GM IN 50 ML IVPB ×3 (16:34→20:56)
[2018-07-26] MEDS: ENOXAPARIN 40 MG/0.4 ML SYG SC ×2 (17:00→18:12)
[2018-07-26] MEDS: METOCLOPRAMIDE 10 MG TAB PO (21:21)
[2018-07-26] MEDS: DONEPEZIL 5 MG TAB PO (21:21)
[2018-07-26] MEDS: PANTOPRAZOLE (EC) 40 MG TAB PO (21:21)
[2018-07-26] MEDS: TAMSULOSIN (SR) 0.4 MG CAP PO (21:21)
[2018-07-26] MEDS: SERTRALINE 50 MG TAB PO (21:21)
[2018-07-26] MEDS: MAGNESIUM OXIDE 400 MG TAB PO (21:24)
[2018-07-26] MEDS ORDERED: HALOPERIDOL 5 MG INJ IV (23:30)
[2018-07-27] MEDS: MAG SULFATE 2GM IN 50 ML IVPB (00:05)
[2018-07-27] MEDS: ACETAMINOPHEN 500 MG TAB PO (06:00)
[2018-07-27] MEDS: SODIUM CHLORIDE 1 GM TAB PO ×2 (08:08→12:21)
[2018-07-27] MEDS: METOCLOPRAMIDE 10 MG TAB PO ×2 (08:09→12:21)
[2018-07-27] MEDS: ALLOPURINOL 100 MG TAB PO (08:09)
[2018-07-27] MEDS: LISINOPRIL 5 MG TAB PO (08:09)
[2018-07-27] MEDS: ARIPIPRAZOLE 2 MG TAB PO (08:09)
[2018-07-27] MEDS: MAGNESIUM OXIDE 400 MG TAB PO (08:09)
[2018-07-27] MEDS: PANTOPRAZOLE (EC) 40 MG TAB PO (08:10)
[2018-07-27] MEDS: ENOXAPARIN 40 MG/0.4 ML SYG SC (08:17)
[2018-07-27 08:48] LABS: ADD MAN DIFF? NO
[2018-07-27 08:54] LABS: WHITE BLOOD COUNT 4.6 10^3/ul (4.8-10.8)
[2018-07-27 08:54] LABS: BASOPHILS % 0.7 % (0.0-2.0); EOSINOPHILS % 0.7 % (0.0-7.0); HEMATOCRIT 34.6 % (42.0-52.0); HEMOGLOBIN 11.5 g/dl (14.0-18.0); LYMPHOCYTES # 0.7 10^3/ul (0.8-2.9); LYMPHOCYTES % 14.5 % (15.0-51.0); MEAN CORPUSCULAR HEMOGLOBIN 28.6 pg (29.0-33.0); MEAN CORPUSCULAR HGB CONC 33.2 g/dl (32.0-37.0); MEAN CORPUSCULAR VOLUME 86.1 fl (82.0-101.0); MEAN PLATELET VOLUME 9.4 fl (7.4-10.4); MONOCYTE # 0.5 10^3/ul (0.3-0.9); NEUTROPHIL # 3.4 10^3/ul (1.6-7.5); NEUTROPHILS % 73.9 % (39.0-77.0); PLATELET COUNT 144 10^3/UL (140-415); RED BLOOD COUNT 4.02 10^6/ul (4.70-6.10); RED CELL DISTRIBUTION WIDTH 14.3 % (11.5-14.5)
[2018-07-27 09:08] LABS: PHOSPHORUS 3.2 mg/dl (2.5-4.9)
[2018-07-27 09:08] LABS: ALANINE AMINOTRANSFERASE 8 IU/L (13-69); ALBUMIN/GLOBULIN RATIO 1.03; ALKALINE PHOSPHATASE 76 IU/L (42-121); ANION GAP 8 (5-13); ASPARTATE AMINO TRANSFERASE 25 IU/L (15-46); BILIRUBIN,INDIRECT 0.7 mg/dl (0-1.1); BILIRUBIN,TOTAL 0.7 mg/dl (0.2-1.3); BLOOD UREA NITROGEN 5 mg/dl (7-20); CALCIUM 8.8 mg/dl (8.4-10.2); CARBON DIOXIDE 25 mmol/L (21-31); CHLORIDE 96 mmol/L (97-110); CREATININE 0.76 mg/dl (0.61-1.24); GLUCOSE 93 mg/dl (70-220); MAGNESIUM 2.2 mg/dl (1.7-2.5); POTASSIUM 3.3 mmol/L (3.5-5.1); SODIUM 129 mmol/L (135-144); TOTAL PROTEIN 5.9 g/dl (6.1-8.1)
[2018-07-27] MEDS: LOPERAMIDE HCL 1 MG/5 ML LIQUID (10 ML UD CUP) GTB (11:31)
[2018-07-27] MEDS: PROCHLORPERAZINE 5 MG TAB PO (11:31)
[2018-07-27] MEDS: POTASSIUM CHLORIDE (SR) 20 MEQ TAB PO (11:38)
[2018-07-27] MEDS: ONDANSETRON 4 MG INJ IV (13:40)
== END 2018-07-27 19:58 | disposition left against medical advice (07) | DRG 641 ==
LOC: E/R 18:52 → TEL 23:07
PROVIDERS: Internal Medicine
DX: E87.1 Hypo-osmolality and hyponatremia (principal); F50.2 Bulimia nervosa; N13.30 Unspecified hydronephrosis; E83.42 Hypomagnesemia; F03.90 Unspecified dementia, unspecified severity, without behavioral disturbance, psychotic disturbance, mood disturbance, and anxiety; I48.91 Unspecified atrial fibrillation; I10 Essential (primary) hypertension; J44.9 Chronic obstructive pulmonary disease, unspecified; N40.0 Benign prostatic hyperplasia without lower urinary tract symptoms; Z87.891 Personal history of nicotine dependence; Z91.81 History of falling
CPT/HCPCS: 36415; 70450; 71045; 72125; 72128; 72131; 72192; 74176; 80053; 81003; 82962; 83605; 83690; 83735; 83935; 84100; 84300; 84484; 85025; 92610; 93005; 96374; 99285-25

== ENCOUNTER 2018-08-17 20:20 | Emergency (ER) | payer OTHER ==
[2018-08-17] MEDS: IPRATROPIUM (NEB) 0.5 MG/2.5 ML AMP INH (21:06)
[2018-08-17] MEDS: ALBUTEROL 0.5% (NEB) 2.5 MG/0.5 ML AMP INH (21:06)
[2018-08-17] MEDS: SOD CHLORIDE 0.9% 1,000 ML IV ×3 (21:19→22:30)
[2018-08-17] MEDS: METHYLPREDNISOLONE 125 MG INJ IV (21:21)
[2018-08-17 21:34] LABS: ADD MAN DIFF? NO
[2018-08-17 21:35] LABS: WHITE BLOOD COUNT 5.6 10^3/ul (4.8-10.8)
[2018-08-17 21:35] LABS: BASOPHILS % 0.5 % (0.0-2.0); EOSINOPHILS % 0.4 % (0.0-7.0); HEMATOCRIT 35.2 % (42.0-52.0); HEMOGLOBIN 11.9 g/dl (14.0-18.0); LYMPHOCYTES # 1.3 10^3/ul (0.8-2.9); LYMPHOCYTES % 22.4 % (15.0-51.0); MEAN CORPUSCULAR HEMOGLOBIN 28.7 pg (29.0-33.0); MEAN CORPUSCULAR HGB CONC 33.8 g/dl (32.0-37.0); MEAN CORPUSCULAR VOLUME 84.8 fl (82.0-101.0); MEAN PLATELET VOLUME 9.1 fl (7.4-10.4); MONOCYTE # 0.8 10^3/ul (0.3-0.9); MONOCYTES % 13.6 % (0.0-11.0); NEUTROPHIL # 3.5 10^3/ul (1.6-7.5); NEUTROPHILS % 62.6 % (39.0-77.0); PLATELET COUNT 202 10^3/UL (140-415); RED BLOOD COUNT 4.15 10^6/ul (4.70-6.10); RED CELL DISTRIBUTION WIDTH 13.9 % (11.5-14.5)
[2018-08-17 21:55] LABS: ALANINE AMINOTRANSFERASE 10 IU/L (13-69); ALBUMIN 3.4 g/dl (3.3-4.9); ALBUMIN/GLOBULIN RATIO 0.97; ALKALINE PHOSPHATASE 70 IU/L (42-121); ANION GAP 13 (5-13); ASPARTATE AMINO TRANSFERASE 20 IU/L (15-46); BILIRUBIN,INDIRECT 0.4 mg/dl (0-1.1); BILIRUBIN,TOTAL 0.4 mg/dl (0.2-1.3); BLOOD UREA NITROGEN 7 mg/dl (7-20); CALCIUM 8.2 mg/dl (8.4-10.2); CARBON DIOXIDE 23 mmol/L (21-31); CHLORIDE 88 mmol/L (97-110); CREATININE 0.96 mg/dl (0.61-1.24); GLUCOSE 71 mg/dl (70-220); LIPASE 110 U/L (23-300); POTASSIUM 3.3 mmol/L (3.5-5.1); SODIUM 124 mmol/L (135-144); TOTAL PROTEIN 6.9 g/dl (6.1-8.1)
[2018-08-17 22:07] LABS: TROPONIN-I < 0.012 ng/ml (0.000-0.120)
[2018-08-17 22:07] LABS: B-TYPE NATRIURETIC PEPTIDE 1640 PG/ML (0-450)
[2018-08-17] MEDS ORDERED: ONDANSETRON 4 MG INJ IV (22:30)
[2018-08-17] MEDS ORDERED: ALPRAZOLAM 0.25 MG TAB PO (22:30)
[2018-08-18] MEDS: ALBUTEROL/IPRATROPIUM (NEB) 3 ML AMP HHN ×3 (01:15→10:14)
[2018-08-18] MEDS: METHYLPREDNISOLONE 125 MG INJ IV (06:28)
[2018-08-18] MEDS: LEVOFLOXACIN 500 MG TAB PO (06:28)
[2018-08-18] MEDS: PANTOPRAZOLE (EC) 40 MG TAB PO (06:29)
[2018-08-18] MEDS: HALOPERIDOL 5 MG INJ IM (08:26)
[2018-08-18] MEDS: SOD CHLORIDE 0.9% 1,000 ML IV (08:26)
[2018-08-18] MEDS ORDERED: SODIUM CHLORIDE 1 GM TAB PO (09:00)
[2018-08-18 09:17] LABS: ANION GAP 12 (5-13); BLOOD UREA NITROGEN 5 mg/dl (7-20); CALCIUM 8.6 mg/dl (8.4-10.2); CARBON DIOXIDE 24 mmol/L (21-31); CHLORIDE 88 mmol/L (97-110); CREATININE 0.73 mg/dl (0.61-1.24); GLUCOSE 98 mg/dl (70-220); POTASSIUM 3.8 mmol/L (3.5-5.1); SODIUM 124 mmol/L (135-144)
[2018-08-18] MEDS: ALLOPURINOL 100 MG TAB PO (09:52)
[2018-08-18] MEDS: MAGNESIUM OXIDE 400 MG TAB PO (09:52)
[2018-08-18] MEDS: POTASSIUM CHLORIDE (SR) 8 MEQ CAP PO (09:52)
[2018-08-18] MEDS: SODIUM CHLORIDE 1 GM TAB PO (09:53)
[2018-08-18] MEDS: ARIPIPRAZOLE 2 MG TAB PO (09:53)
[2018-08-18] MEDS: LISINOPRIL 5 MG TAB PO (10:07)
[2018-08-18] MEDS ORDERED: SERTRALINE 50 MG TAB PO (21:00)
[2018-08-18] MEDS ORDERED: DONEPEZIL 5 MG TAB PO (21:00)
[2018-08-18] MEDS ORDERED: TAMSULOSIN (SR) 0.4 MG CAP PO (21:00)
== END 2018-08-18 15:40 | disposition home or self-care (01) ==
LOC: E/R 08-18 15:40
DX: J44.1 Chronic obstructive pulmonary disease with (acute) exacerbation (principal); E87.1 Hypo-osmolality and hyponatremia; E87.6 Hypokalemia; I10 Essential (primary) hypertension
CPT/HCPCS: 36415; 71045; 80048; 80053; 83690; 83880; 84484; 85025; 87040-91; 87400; 93005; 94640; 94644; 94664; 96372; 96374; 96376; 99285-25